=== PATIENT | male | born 2000 | race African-American/Black ===

== ENCOUNTER 2025-10-19 12:21 | Emergency (ER) | payer OTHER ==
[~2025-10-19] VITALS: Ht 177.8 cm; Wt 120.0 kg
[2025-10-19 13:00] VITALS: PULSE 83; RESP 12; O2SAT 99
--- NOTE | 2025-10-19 16:33 | ED.PDOC ---
History of Present Illness HPI Comments 25-year-old male brought by paramedics because he has suicidal ideation. He has been aggressive and abusive with the paramedics and an family. He has not tried to use any instruments to harm himself. History of bipolar schizophrenia. He has been hospitalized in a psychiatric facility many times for similar psychosis. Denies any other symptoms. Chief Complaint: Mental Health Time Seen by MD: 12:27 Reviewed Notes: Nurses Notes, Medications, Allergies Allergies: Coded Allergies: NO KNOWN ALLERGIES (Unverified , 10/19/25) Information Source: Patient, Emergency Med Personnel Mode of Arrival: EMS Severity: Moderate Timing: Days Duration: Since onset Past Medical History PAST MEDICAL HISTORY: Schizophrenia Surgical History: Denies all surgeries Social History Smoker: Non-Smoker Alcohol: Denies ETOH Use Drugs: Denies Drug Use Constitutional: denies: chills, diaphoresis, fatigue, fever, malaise, sweats, weakness, others EENTM: denies: blurred vision, double vision, ear bleeding, ear discharge, ear drainage, ear pain, ear ringing, eye pain, eye redness, hearing loss, mouth pain, mouth swelling, nasal discharge, nose bleeding, nose congestion, nose pain, photophobia, tearing, throat pain, throat swelling, voice changes, others Respiratory: denies: cough, hemoptysis, orthopnea, SOB at rest, shortness of breath, SOB with excertion, stridor, wheezing, others Cardiovascular: denies: chest pain, dizzy spells, diaphoresis, Dyspnea on exertion, edema, irregular heart beat, left arm pain, lightheadedness, palpitations, PND, syncope, others Gastrointestinal: denies: abdomen distended, abdominal pain, blood streaked bowels, constipated, diarrhea, dysphagia, difficulty swallowing, hematemesis, melena, nausea, poor appetite, poor fluid intake, rectal bleeding, rectal pain, vomiting, others Genitourinary: denies: burning, dysuria, flank pain, frequency, hematuria, incontinence, penile discharge, penile sore, pain, testicle pain, testicle swelling, urgency, others Neurological: denies: dizziness, fainting, headache, left sided numbness, left sided weakness, numbness, paresthesia, pre-existing deficit, right sided numbness, right sided weakness, seizure, speech problems, tingling, tremors, weakness, others Musculoskeletal: denies: back pain, gout, joint pain, joint swelling, muscle pain, muscle stiffness, neck pain, others Integumetry: denies: bruises, change in color, change in hair/nails, dryness, laceration, lesions, lumps, rash, wounds, others Allergic/Immunocompromised: denies: Difficulty Healing, Frequent Infections, Hives, Itching, others Hematologic/Lymphatic: denies: anemia, blood clots, easy bleeding, easy bruising, swollen glands, others Endocrine: denies: excessive hunger, excessive sweating, excessive thirst, excessive urination, flushing, intolerance to cold, intolerance to heat, unexplained weight gain, unexplained weight loss, others Psychiatric: reports: bipolar disorder, schizophrenia; denies: anxiety, depression, hopeless, panic disorder, sleepless, suicidal, others Physical Exam General Appearance: Moderate Distress HEENT: Normal ENT Inspection, Pharynx Normal, TMs Normal Neck: Full Range of Motion, Non-Tender, Normal, Normal Inspection Respiratory: Chest Non-Tender, Lungs Clear, No Accessory Muscle Use, No Respiratory Distress, Normal Breath Sounds Cardiovascular: No Edema, No JVD, No Murmur, No Gallop, Normal Peripheral Pulses, Regular Rate/Rhythm Breast Exam: Deferred Gastrointestinal: No Organomegaly, Non Tender, No Pulsatile Mass, Normal Bowel Sounds, Soft Genitalia: Deferred Pelvic: Deferred Rectal: Deferred Extremities: No calf tenderness, Normal capillary refill, Normal inspection, Normal range of motion, Non-tender, No pedal edema Musculoskeletal : Apperance: Normal Neurologic: Alert, mold clamper II-XII nml as Tested, No Motor Deficits, Normal Affect, Normal Mood, No Sensory Deficits Cerebellar Function: Normal Reflexes: Normal Skin: Dry, Normal Color, Warm Peripheral Pulses: 3+ Radial (R), 3+ Radial (L) Lymphatic: No Adenopathy Was a procedure done? Was a procedure done?: No Differential Dx Considerations may include: Schizophrenia X-Ray, Labs, Meds, VS Vital Signs Date Time Temp Pulse Resp B/P (MAP) Pulse Ox O2 Delivery O2 Flow Rate FiO2 10/19/25 13:00 83 12 99 Room Air* 0 21 10/19/25 13:00 83 12 119/75 (90) 99 10/19/25 12:26 99.0 100 22 151/88 100 99.0 Patient alert. Has become more calm after coming to the ER. Vitals stable. Answering all questions. No sign of any injury. Moving all extremities. Medically cleared. Psychiatric evaluation. Time of 1ST Reevaluation: 16:32 Reevaluation 1ST: Unchanged Patient Education/Counseling: Diagnosis, Treatment, Prognosis, Need For Follow Up Family Education/Counseling: No Family Present SEPSIS Sepsis Screen Date sepsis recognized/suspect: Oct 19, 2025 Time Sepsis recognized/suspect: 1300 Recent Procedure: No On Antibiotic Therapy: No Respiratory Rate >20: No Heart Rate >90: No Temp<36 C (96.8 F) or >38.3 C: No SBP <90 or MAP <65 mmHG: No New Acute Mental Status Change: No Is the patient on CPAP, BIPAP,: No Physician Orders Behavioral Restraints (10/19/25 12:21) Drug Screen (10/19/25 15:16) *Tele Psych Consult (10/19/25 15:16) Vital Signs Date Time Temp Pulse Resp B/P (MAP) Pulse Ox O2 Delivery O2 Flow Rate FiO2 10/19/25 13:00 83 12 99 Room Air* 0 21 10/19/25 13:00 83 12 119/75 (90) 99 10/19/25 12:26 99.0 100 22 151/88 100 99.0 Departure 1 Departure Time of Disposition: 16:33 Impression: Primary Impression: Schizophrenia Qualified Codes: F20.9 - Schizophrenia, unspecified Disposition: 30 STILL A PATIENT Condition: Good Critical Care Note Critical Care Time?: No Stability Stability form required: No Heart Score Heart Score: Heart Score Response (Comments) Value History N/A 0 EKG N/A 0 Age N/A 0 Risk Factors N/A 0 Troponin N/A 0 Total 0 SANJAY HOYT MD Oct 19, 2025 16:33
[2025-10-20 04:13] LABS: Cannabinoid Screen, Urine Pos (NEGATIVE)
[2025-10-20 04:22] LABS: Amphetamine Screen, Urine Neg (NEGATIVE); Barbiturate Scree,Urine Neg (NEGATIVE); Benzodiazephine Screen, Urine Neg (NEGATIVE); Cocaine Screen, Urine Neg (NEGATIVE); Opiate Scree,Urine Neg (NEGATIVE); Phencyclidine Screen, Urine Neg (NEGATIVE)
--- NOTE | 2025-10-20 09:22 | DVHINCON2 ---
Date of Service if different f: Oct 20, 2025 Time of Service: 08:37 Consultation ([facility]) Consulting Physician: RUY GREWAL MD Labs Laboratory Tests Test 10/19/25 00:00 Urine Opiates Screen Neg (NEGATIVE) Urine Fentanyl Screen Neg (NEGATIVE) Urine Barbiturates Screen Neg (NEGATIVE) Urine Phencyclidine Screen Neg (NEGATIVE) Urine Amphetamines Screen Neg (NEGATIVE) Urine Benzodiazepines Screen Neg (NEGATIVE) Urine Cocaine Screen Neg (NEGATIVE) Urine Cannabinoids Screen Pos (NEGATIVE) Appearance: Stated age Psychomotor activity: Restless Behavioral: Cooperative Eye contact: Appropriate Speech: Pressured Affect: Labile Mood: Elevated, Euphoric Thought processes: Flight of ideas, Tangential, Disorganized Thought content: Delusions, Hallucinations (visual) Suicidal ideations: Absent Homicidal ideations: Absent Orientation: Person, Place, Time, Situation Memory intact: Recent Intellect: Average Abstractability: Marginal Concentration: Limited Attention: Limited Judgement: Poor Insight: Poor Vitals Vital Signs Date Time Temp Pulse Resp B/P (MAP) Pulse Ox O2 Delivery O2 Flow Rate FiO2 10/20/25 04:31 98.2 83 18 126/79 (95) 96 98.2 10/19/25 19:30 Room Air* 0 21 Treatment plan discussed: With staff Medication adjusted: Yes Labs ordered: No Psychotherapy provided: No Type: Voluntary History of Present Illness Reason for Consult : psychiatric evaluation Per ED Physician: 25-year-old male brought by paramedics because he has suicidal ideation. He has been aggressive and abusive with the paramedics and an family. He has not tried to use any instruments to harm himself. History of bipolar schizophrenia. He has been hospitalized in a psychiatric facility many times for similar psychosis. Denies any other symptoms. Psychiatrist HPI: The patient was seen and evaluated at [facility] ED via telepsychiatry platform. 25yr old male reported he had a disturbance at home. He was "shuffling" with his mother and may have fought with her because he was out of control and unable to handle his actions. He said his mother wants him to "be her baby." She said he has been working, but she recently stopped woman. He said he wants to control his home, but he feels like he can't take over his mother's home. He said he came in because his mom did not like the way he was making smoothies. He could not say how long he slept each night. He reported "I am not disturbing the cycle of the son and the kruger." He said he studied quantum mechanics, time, space and how things relate. At another time, he said he studied social work and he rambled on about his body and how his family viewed his body. He said he doesn't think his family understands him. He then said he went to school for music, but then drank some water and said he went to school to study water such a the biblical story of water. He reported he used MJ. He stated he doesn't feel like harming himself or others, but was reported by doctor of pharmacy to have suicidal ideation. He reported his energy level is good and he sleeps fine. He feels like the scriptures are mocking him. He said he has charms, necklaces and bracelet which mean a lot to him. He feels they have to be pure and holy. He said he is not seeing life right. He is unable to state how he cares He denied having any homicidal or suicidal ideation and denied having auditory hallucinations. He reported seeing bible verses on other people. Past Psychiatric History : Diagnosed with schizophrenia. Had been on risperdal in the past. He does not remember past hospitalizations, but several hospitalization are noted. No past suicide attempts. Past Medical History: none Current Medications: none. NKDA Substance use: Smokes MJ frequently. Has tried cocaine before, Last about three years ago. Occasional alcohol use. Denied use of other substance use. Social History : Lives in [place] with mother. Never , no children. Attended [employer]. Unemployed. Diagnosis: UNSPECIFIED PSYCHOTIC DISORDER; rule out bipolar disorder Formulation: This 25 yr old male appears to suffer from psychotic sebastian and had a fight with his mother yesterday as well as reported suicidal ideation. He has presssured speech and flight of ideas and is diorganized. He is a moderate to high danger to self and others as well as appearing gravely disabled. He warrants hospitalization for further observation, stabilization and treatment. He may benefit from starting zyprexa and ativan to help with mood stabilization. Plan: 1. Transfer to behavioral health unit when bed available. 2. Legal-initiate 5150 involuntary hold for grave disability, danger to others and danger to self. 3. Medication: Recommend starting zyprexa 10 mg BID, ativan 2mg q8hr prn agitation. 4. Contact psychiatry if further evaluation or follow up is desired. 5. case discussed with CALLIE Sheikh. Assessment/Diagnosis/Plan Reviewed: Labs, Medications, Previous Orders RUY GREWAL MD Oct 20, 2025 08:38
[2025-10-20 19:30] VITALS: PULSE 90; RESP 18; O2SAT 96
[2025-10-20] MEDS: HALOPERIDOL LACTATE 5 MG/ML INJ VIAL IM ONE (21:18)
[2025-10-20] MEDS: LORazepam 2MG/ML-1ML VIAL IV ONE (21:19)
[2025-10-21 09:19] VITALS: BP 135/95; PULSE 77; RESP 16; TEMP 98.8; O2SAT 100
== END 2025-10-21 09:46 ==
LOC: ER 12:21
DX: F20.9 Schizophrenia, unspecified (principal)
CPT/HCPCS: 80307